=== PATIENT | male | born 1970 | race Caucasian/White ===

== ENCOUNTER 2020-08-10 11:56 | Emergency (ER) | payer OTHER | END 2020-08-10 15:54 | disposition home or self-care (01) | LOC: FER 11:56 | DX: S01.81XA Laceration without foreign body of other part of head, initial encounter (principal); S80.02XA Contusion of left knee, initial encounter; S80.812A Abrasion, left lower leg, initial encounter; F17.210 Nicotine dependence, cigarettes, uncomplicated; Z23 Encounter for immunization; Z79.899 Other long term (current) drug therapy; V86.59XA Driver of other special all-terrain or other off-road motor vehicle injured in nontraffic accident, initial encounter; Y92.410 Unspecified street and highway as the place of occurrence of the external cause | CPT/HCPCS: 72040; 73560; 90471; 90714 ==